=== PATIENT | male | born 1950 | race Caucasian/White ===

== ENCOUNTER → 2018-03-10 | Outpatient (CLI) | payer MEDICARE, OTHER ==
[2018-03-10 09:47] LABS: FOLATE > 20.00 ng/mL (>2.76)
== END ==
LOC: OD 07:16
PROVIDERS: ATTEND Specialist
DX: G25.81 Restless legs syndrome (principal)
CPT/HCPCS: 36415; 82306; 82607; 82746; 83735

== ENCOUNTER → 2018-05-03 | Outpatient (CLI) | payer MEDICARE, OTHER | LOC: OD 07:11 | PROVIDERS: ATTEND Specialist | DX: D51.9 Vitamin B12 deficiency anemia, unspecified (principal); G25.81 Restless legs syndrome; F02.80 Dementia in other diseases classified elsewhere, unspecified severity, without behavioral disturbance, psychotic disturbance, mood disturbance, and anxiety | CPT/HCPCS: 36415; 82607 ==

== ENCOUNTER → 2018-08-22 | Outpatient (CLI) | payer MEDICARE, OTHER | LOC: OD 07:21 | PROVIDERS: ATTEND Specialist | DX: G20 Parkinson's disease (principal); R13.12 Dysphagia, oropharyngeal phase; D51.9 Vitamin B12 deficiency anemia, unspecified | CPT/HCPCS: 36415; 82607 ==

== ENCOUNTER → 2018-09-01 | Outpatient (CLI) | payer MEDICARE, OTHER | LOC: OD 12:14 | PROVIDERS: ATTEND Specialist | DX: D64.9 Anemia, unspecified (principal); D51.9 Vitamin B12 deficiency anemia, unspecified | CPT/HCPCS: 36415; 82728 ==

== ENCOUNTER → 2020-06-25 | Outpatient (CLI) | payer MEDICARE, OTHER ==
[2020-06-25 12:45] LABS: IRON 94.3 ug/dL (49-181)
== END ==
LOC: OD 11:39
DX: G20 Parkinson's disease (principal); G25.81 Restless legs syndrome; R63.8 Other symptoms and signs concerning food and fluid intake
CPT/HCPCS: 36415; 82728; 83540